=== PATIENT | male | born 1990 | race African-American/Black ===

== ENCOUNTER 2019-03-16 20:06 | Emergency (ER) | payer SELFPAY | END 2019-03-16 22:46 | disposition home or self-care (01) | LOC: ERS 20:06 | DX: K04.7 Periapical abscess without sinus (principal); B20 Human immunodeficiency virus [HIV] disease; F32.9 Major depressive disorder, single episode, unspecified | CPT/HCPCS: 99283 ==

== ENCOUNTER 2019-11-17 05:50 | Emergency (ER) | payer SELFPAY ==
[2019-11-17] MEDS ORDERED: Ketorolac Tromethamine 60 MG/2 ML VIAL ONE (06:42)
--- NOTE | 2019-11-17 08:08 | RAD ---
CHEST 2 VIEWS: Date: 11/17/2019 HISTORY: Cough. FINDINGS: Heart size is normal. The lungs are clear. IMPRESSION: No significant acute intrathoracic disease. No evidence for pneumonia. POS: [facility]
== END 2019-11-17 07:05 | disposition home or self-care (01) ==
LOC: ERS 05:50
DX: S29.012A Strain of muscle and tendon of back wall of thorax, initial encounter (principal); R05 Cough; F32.9 Major depressive disorder, single episode, unspecified; B20 Human immunodeficiency virus [HIV] disease; Z79.899 Other long term (current) drug therapy; Z87.891 Personal history of nicotine dependence; Z71.6 Tobacco abuse counseling; X58.XXXA Exposure to other specified factors, initial encounter
CPT/HCPCS: 71046; 96372; 99406; J1885

== ENCOUNTER 2020-08-10 04:33 | Emergency (ER) | payer SELFPAY ==
[2020-08-10 14:18] LABS: SARS-CoV-2 MS2 Positive; SARS-CoV-2 N Gene Negative; SARS-CoV-2 S Gene Negative; SARS-CoV-2 by NAA Not Detected (NotDetected); SARS-CoV-2 orf1ab Negative
== END 2020-08-10 06:09 | disposition home or self-care (01) ==
LOC: ERS 04:33
DX: J02.9 Acute pharyngitis, unspecified (principal); R06.02 Shortness of breath; Z21 Asymptomatic human immunodeficiency virus [HIV] infection status; F32.9 Major depressive disorder, single episode, unspecified; F17.210 Nicotine dependence, cigarettes, uncomplicated; Z20.828 Contact with and (suspected) exposure to other viral communicable diseases
CPT/HCPCS: 87635; 99283; U0003

== ENCOUNTER 2020-12-31 12:00 | Emergency (ER) | payer SELFPAY ==
[2020-12-31 13:26] LABS: Hemoglobin 14.4 g/dL (14.0-18.0); Mean Corpuscular Hemoglobin 30.2 pg (27.0-31.0); Mean Corpuscular Volume 91.4 fL (78.0-98.0); Mean Platelet Volume 6.6 fL (7.4-10.4); Platelet Count 305 thou/uL (130-400); RBC Distribution Width 12.4 % (11.5-14.5); Red Blood Cell (RBC) Count 4.78 mill/uL (4.70-6.10); White Blood Cell (WBC) Count 5.8 thou/uL (4.8-10.8)
[2020-12-31] MEDS ORDERED: Ketorolac Tromethamine 30 MG/ML VIAL ONE (13:28)
[2020-12-31] MEDS ORDERED: Magnesium 2 GM/50 ML BAG (IN WATER) ONE (13:28)
[2020-12-31] MEDS ORDERED: Acetaminophen 500 MG TAB ONE (13:28)
[2020-12-31] MEDS ORDERED: methylPREDNISolone Sod Succ/PF 125 MG/2 ML VIAL ONE (13:28)
[2020-12-31 13:38] LABS: Anion Gap 11 mmol/L (10-20); BUN (Urea Nitrogen) 12 mg/dL (8.9-20.6); Calc. Creatinine Clearance 0 mL/min (70-130); Calcium 9.4 mg/dL (7.8-10.44); Carbon Dioxide 28 mmol/L (22-29); Chloride 102 mmol/L (98-107); Glucose 90 mg/dL (70-105); Potassium 3.8 mmol/L (3.5-5.1); Sodium 137 mmol/L (136-145)
[2020-12-31 13:51] LABS: Band 3 % (5-11); Lymphocytes 42 % (21-51); MDiff Complete? YES; Monocytes 8 % (0-10); Neutrophil 25 % (42-75); Platelet Morphology Comment Appears Adequate; Polychromasia SLIGHT = 2-3 cells (100X) (0-2/hpf); Reactive Lymphocytes 22 % (0-10); Stomatocytes SLIGHT = 2-5 cells (100X) (0-1/hpf)
[2020-12-31] MEDS ORDERED: cefTRIAXone\\ROCEPHIN 500 MG VIAL ONE (14:11)
[2020-12-31] MEDS ORDERED: Azithromycin 250 MG TAB ONE (14:11)
== END 2020-12-31 14:34 | disposition home or self-care (01) ==
LOC: ERS 12:00
DX: N34.2 Other urethritis (principal); R51.9 Headache, unspecified; F17.210 Nicotine dependence, cigarettes, uncomplicated; Z21 Asymptomatic human immunodeficiency virus [HIV] infection status; Z79.899 Other long term (current) drug therapy
CPT/HCPCS: 36415; 70450; 80048; 85025; 96365; 96375; J0696; J1885; J2930; J3475

== ENCOUNTER 2021-03-22 23:50 | Emergency (ER) | payer SELFPAY ==
[2021-03-23 00:16] LABS: Mean Corpuscular HGB CONC 33.8 g/dL (32.0-36.0); Mean Corpuscular Hemoglobin 31.1 pg (27.0-31.0); Mean Corpuscular Volume 92.1 fL (78.0-98.0); Mean Platelet Volume 6.6 fL (7.4-10.4); Platelet Count 323 thou/uL (130-400); RBC Distribution Width 12.1 % (11.5-14.5); Red Blood Cell (RBC) Count 4.19 mill/uL (4.70-6.10); White Blood Cell (WBC) Count 8.6 thou/uL (4.8-10.8)
[2021-03-23 00:31] LABS: Band 1 % (5-11); Hypochromia SLIGHT = 6-15 cells (100X) (0-5/hpf); Lymphocytes 63 % (21-51); MDiff Complete? YES; Monocytes 4 % (0-10); Neutrophil 23 % (42-75); Platelet Morphology Comment Appears Adequate; Reactive Lymphocytes 9 % (0-10)
[2021-03-23 00:37] LABS: ALT (SGPT) 78 U/L (8-55); AST (SGOT) 59 U/L (5-34); Albumin 3.9 g/dL (3.5-5.0); Alkaline Phosphatase 75 U/L (40-110); Anion Gap 14 mmol/L (10-20); BUN (Urea Nitrogen) 12 mg/dL (8.9-20.6); Bilirubin, Total 0.2 mg/dL (0.2-1.2); Calc. Creatinine Clearance 0 mL/min (70-130); Calcium 9.5 mg/dL (7.8-10.44); Carbon Dioxide 24 mmol/L (22-29); Chloride 104 mmol/L (98-107); Globulin 4.9 g/dL (2.4-3.5); Glucose 127 mg/dL (70-105); Potassium 4.2 mmol/L (3.5-5.1); Protein, Total 8.8 g/dL (6.0-8.3); Sodium 138 mmol/L (136-145)
[2021-03-23 00:41] LABS: Bilirubin Negative (Negative); Blood, Urine Negative (Negative); Clarity Clear (Clear); Glucose, Urine (Dipstick) Normal (Negative); Ketone, Urine Negative (Negative); Leukocyte Negative Leu/uL (Negative); Nitrite Negative (Negative); Protein, Urine (Dipstick) Negative (Neg-Trace); Urobilinogen Normal mg/dL (Less than 2); pH, Urine 5.5 (5.0-9.0)
== END 2021-03-23 01:40 | disposition left against medical advice (07) ==
LOC: ERS 23:50
DX: Z53.21 Procedure and treatment not carried out due to patient leaving prior to being seen by health care provider (principal)
CPT/HCPCS: 36415; 80053; 81003; 85025

== ENCOUNTER 2021-03-29 22:38 | Emergency (ER) | payer SELFPAY ==
[2021-03-29 23:17] LABS: Mean Corpuscular HGB CONC 33.2 g/dL (32.0-36.0); Mean Corpuscular Hemoglobin 30.4 pg (27.0-31.0); Mean Corpuscular Volume 91.6 fL (78.0-98.0); Mean Platelet Volume 6.6 fL (7.4-10.4); Platelet Count 374 thou/uL (130-400); RBC Distribution Width 11.9 % (11.5-14.5); White Blood Cell (WBC) Count 7.4 thou/uL (4.8-10.8)
[2021-03-29 23:38] LABS: ALT (SGPT) 56 U/L (8-55); AST (SGOT) 38 U/L (5-34); Albumin 4.1 g/dL (3.5-5.0); Alkaline Phosphatase 85 U/L (40-110); Anion Gap 14 mmol/L (10-20); BUN (Urea Nitrogen) 7 mg/dL (8.9-20.6); Bilirubin, Total 0.3 mg/dL (0.2-1.2); Calc. Creatinine Clearance 0 mL/min (70-130); Carbon Dioxide 24 mmol/L (22-29); Chloride 103 mmol/L (98-107); Globulin 5.1 g/dL (2.4-3.5); Glucose 98 mg/dL (70-105); Lipase 79 U/L (8-78); Potassium 4.1 mmol/L (3.5-5.1); Protein, Total 9.2 g/dL (6.0-8.3); Sodium 137 mmol/L (136-145)
[2021-03-29 23:40] LABS: Band 1 % (5-11); Eosinophils 1 % (0-10); Lymphocytes 58 % (21-51); MDiff Complete? YES; Monocytes 4 % (0-10); Neutrophil 36 % (42-75)
== END 2021-03-30 03:00 | disposition home or self-care (01) ==
LOC: ERS 22:38
DX: K92.2 Gastrointestinal hemorrhage, unspecified (principal); Z21 Asymptomatic human immunodeficiency virus [HIV] infection status; F17.210 Nicotine dependence, cigarettes, uncomplicated; Z79.899 Other long term (current) drug therapy
CPT/HCPCS: 36415; 80053; 83690; 85025; 99284

== ENCOUNTER 2022-05-09 09:36 | Emergency (ER) | payer SELFPAY ==
[2022-05-09 10:57] LABS: #Basophils 0.1 thou/uL (0.0-0.2); #Eosinphils 0.2 thou/uL (0.0-0.7); #Lymphocytes 5.4 thou/uL (1.20-3.40); #Monocytes 1.2 thou/uL (0.11-0.59); #Neutrophils 3.9 thou/uL (1.40-6.50); %Basophils 1.1 % (0.0-1.0); %Eosinophils 2.2 % (0.0-10.0); %Lymphocytes 49.9 % (21.0-51.0); %Monocytes 11.2 % (0.0-10.0); %Neutrophils 35.7 % (42.0-75.0); Hemoglobin 13.5 g/dL (14.0-18.0); Mean Corpuscular HGB CONC 30.6 g/dL (32.0-36.0); Mean Corpuscular Hemoglobin 28.6 pg (27.0-31.0); Mean Corpuscular Volume 93.3 fL (78.0-98.0); Mean Platelet Volume 6.5 fL (7.4-10.4); Platelet Count 334 thou/uL (130-400); RBC Distribution Width 13.3 % (11.5-14.5); Red Blood Cell (RBC) Count 4.71 mill/uL (4.70-6.10); White Blood Cell (WBC) Count 10.8 thou/uL (4.8-10.8)
[2022-05-09 11:09] LABS: ALT (SGPT) 46 U/L (8-55); AST (SGOT) 42 U/L (5-34); Albumin 3.5 g/dL (3.5-5.0); Alkaline Phosphatase 107 U/L (40-110); Anion Gap 13 mmol/L (10-20); BUN (Urea Nitrogen) 12 mg/dL (8.9-20.6); Bilirubin, Total 0.6 mg/dL (0.2-1.2); Calc. Creatinine Clearance 0 mL/min (70-130); Calcium 9.2 mg/dL (7.8-10.44); Carbon Dioxide 26 mmol/L (22-29); Chloride 96 mmol/L (98-107); Estimated GFR 91; Globulin 7.8 g/dL (2.4-3.5); Glucose 92 mg/dL (70-105); Potassium 4.1 mmol/L (3.5-5.1); Protein, Total 11.3 g/dL (6.0-8.3); Sodium 131 mmol/L (136-145)
[2022-05-09] MEDS ORDERED: Ketorolac Tromethamine 30 MG/ML VIAL ONE (11:15)
[2022-05-09] MEDS ORDERED: Ondansetron PF 4 MG/2 ML Vial ONE (11:15)
[2022-05-09] MEDS ORDERED: Ondansetron ODT 4 MG TAB ONE (11:16)
== END 2022-05-09 12:14 | disposition home or self-care (01) ==
LOC: ERS 09:36
DX: J02.9 Acute pharyngitis, unspecified (principal); B20 Human immunodeficiency virus [HIV] disease; Z79.899 Other long term (current) drug therapy
CPT/HCPCS: 36415; 80053; 85025; 87593; 96372; 99283; J1885; J2405; Q0162

== ENCOUNTER 2022-07-30 04:03 | Emergency (ER) | payer SELFPAY ==
[2022-07-30] MEDS ORDERED: cefTRIAXone\\ROCEPHIN 500 MG VIAL ONE (04:57)
[2022-07-30] MEDS ORDERED: Lidocaine 1% PF 5 ML VIAL ONE (04:57)
[2022-07-30 05:58] LABS: Bacteria/HPF None Seen HPF (None Seen); Bilirubin Negative (Negative); Blood, Urine 1+ (Negative); Clarity Turbid (Clear); Glucose, Urine (Dipstick) Normal (Negative); Ketone, Urine Negative (Negative); Leukocyte 500 Leu/uL (Negative); Nitrite Negative (Negative); Protein, Urine (Dipstick) 10 mg/dL (Neg-Trace); Specific Gravity, Urine 1.023 (1.002-1.036); Squamous Epithelial None Seen HPF (0-3); Urobilinogen Normal mg/dL (Less than 2); WBC/HPF Greater than 50 HPF (0-3); Yeast-Budding 1+ HPF (None Seen)
[2022-07-30 15:32] LABS: Chlam.trachomatis by PCR,Urine Not Detected (NotDetected)
== END 2022-07-30 05:23 | disposition home or self-care (01) ==
LOC: ERS 04:03
DX: R30.0 Dysuria (principal); R36.9 Urethral discharge, unspecified; B20 Human immunodeficiency virus [HIV] disease; Z20.2 Contact with and (suspected) exposure to infections with a predominantly sexual mode of transmission
CPT/HCPCS: 81003; 81015; 87086; 87491; 87591; 96372; 99283; J0696